=== PATIENT | female | born 1975 | race Caucasian/White ===

== ENCOUNTER 2017-11-14 18:52 | Emergency (ER) | payer BC, MEDICAID ==
[~2017-11-14] VITALS: Ht 170.2 cm; Wt 70.3 kg
[2017-11-14 18:56] VITALS: BP 149/93
--- NOTE | 2017-11-14 19:07 | NUR ---
PT AMBULATES TO BED 6
--- NOTE | 2017-11-14 19:13 | NUR ---
PT PRESENTED ER WITH RASH X 3 HOURS. PT STATED SHE FEELS SHE ATE SOMETHING THAT IS CAUSING THE RASH. UPON ASSESSMENT, RASH IS THROUGHOUT BODY, REDDNESS, AND WARM TO TOUCH. PT STATES SHE ITCHES. KNA AND NO PREVIOUS MEDICAL HX. SKIN IS PINK/WARM/DRY; AAOX4 WITH EVEN AND STEADY GAIT; LUNGS CLEAR BL; HR EVEN AND REGULAR; PT DENIES ANY SOB OR SWELLING IN THE THROAT AND TONGUE AT THIS TIME; PATIENT STATES PAIN OF 0/10 AT THIS TIME; VSS; PATIENT POSITIONED FOR COMFORT; HOB ELEVATED; BEDRAILS UP X2; BED DOWN. ER MD MADE AWARE OF PT STATUS.
[2017-11-14] MEDS ORDERED: methylPREDNISolone SS 125 MG/2 ML VIAL IM ONE (19:50)
[2017-11-14 20:17] VITALS: BP 149/93
--- NOTE | 2017-11-14 20:23 | NUR ---
Patient discharged with v/s stable. Written and verbal after care instructions given and explained. Patient alert, oriented and verbalized understanding of instructions. Ambulatory with steady gait. All questions addressed prior to discharge. ID band removed. Patient advised to follow up with PMD. Rx of PREDNISONE, BENADRYL were given. Patient educated on indication of medication including possible reaction and side effects. Opportunity to ask questions provided and answered.
== END 2017-11-14 20:17 | disposition home or self-care (01) ==
LOC: MED 18:52
DX: L25.8 Unspecified contact dermatitis due to other agents (principal); E03.9 Hypothyroidism, unspecified
CPT/HCPCS: 96372; 99283; J2930

== ENCOUNTER 2017-11-16 21:04 | Emergency (ER) | payer MEDICAID ==
[~2017-11-16] VITALS: Ht 170.2 cm; Wt 54.4 kg
[2017-11-16 21:06] VITALS: BP 118/77
--- NOTE | 2017-11-16 21:15 | NUR ---
pt assisted back to lobby in stable condition
--- NOTE | 2017-11-16 22:51 | NUR ---
pt to er bed 12
--- NOTE | 2017-11-16 23:05 | NUR ---
PT PRESENTED ER WITH RASH ALL OVER BODY. PT CAME IN ON SUNDAY AND WAS SENT HOME WITH MEDICATION BUT PT STATES THAT RASH HAS NOT GONE AWAY BUT GOT WORSE. PT STATES THE RASH IS PAINFUL 5/10. IT ALSO ITCHES. RASH IS WARM TO TOUCH AND RED. SKIN IS PINK/WARM/DRY; AAOX4 WITH EVEN AND STEADY GAIT; LUNGS CLEAR BL; HR EVEN AND REGULAR; PT DENIES ANY FEVER, CP, SOB, OR COUGH AT THIS TIME; ; VSS; PATIENT POSITIONED FOR COMFORT; HOB ELEVATED; BEDRAILS UP X2; BED DOWN. ER MD MADE AWARE OF PT STATUS.
[2017-11-17 00:49] LABS: BASOPHILS % (AUTO) 0.1 % (0.0-2.0); EOSINOPHILS % (AUTO) 0.1 % (0.0-4.0); HEMATOCRIT 38.9 % (36-48); HEMOGLOBIN 12.2 g/dL (12.0-16.0); LYMPHOCYTES # (AUTO) 1.7 K/uL (2.5-16.5); LYMPHOCYTES % (AUTO) 10.3 % (20.5-51.1); MEAN CORPUSCULAR HEMOGLOBIN 25 pg (27-31); MEAN CORPUSCULAR HGB CONC 31 g/dL (33-37); MEAN CORPUSCULAR VOLUME 78.4 fL (80-94); MONOCYTES # (AUTO) 0.8 K/uL (0.8-1.0); MONOCYTES % (AUTO) 4.8 % (1.7-9.3); NEUTROPHILS # (AUTO) 14.1 K/uL (1.8-7.7); PLATELET COUNT (AUTO) 294 K/uL (140-450); RED BLOOD CELL COUNT(AUTO) 4.96 MIL/uL (4.20-5.40); RED CELL DISTRIBUTION WIDTH 15.9 % (11.6-13.7); WHITE BLOOD COUNT (AUTO) 16.7 K/uL (4.8-10.8)
[2017-11-17 01:09] LABS: NEUTROPHILS % (AUTO) 84.7 % (42.2-75.2)
--- NOTE | 2017-11-17 01:15 | NUR ---
PT RESTING IN BED, VITALS STABLE.
[2017-11-17 01:16] LABS: ANION GAP 7.9 (8-16); CARBON DIOXIDE 28.8 mmol/L (21-32); CREATININE 0.7 mg/dL (0.6-1.3); POTASSIUM 3.7 mmol/L (3.5-5.1)
[2017-11-17 02:20] VITALS: BP 107/62
--- NOTE | 2017-11-17 02:20 | NUR ---
Patient discharged with v/s stable. Written and verbal after care instructions given and explained. Patient alert, oriented and verbalized understanding of instructions. Ambulatory with steady gait. All questions addressed prior to discharge. ID band removed. Patient advised to follow up with PMD. Rx of CETRIZINE HYDROCHLORIDE and prednisone were given. Patient educated on indication of medication including possible reaction and side effects. Opportunity to ask questions provided and answered.
== END 2017-11-17 02:20 | disposition home or self-care (01) ==
LOC: MED 21:04
DX: L50.9 Urticaria, unspecified (principal); E03.9 Hypothyroidism, unspecified; Z90.49 Acquired absence of other specified parts of digestive tract
CPT/HCPCS: 36415; 80048; 81002; 81025; 85025; 96372; 99284; J0171

== ENCOUNTER 2018-10-18 16:54 | Emergency (ER) | payer MEDICAID ==
[~2018-10-18] VITALS: Ht 170.2 cm; Wt 69.4 kg
[2018-10-18 17:28] VITALS: BP 118/68
--- NOTE | 2018-10-18 17:34 | NUR ---
PT AMBULATED TO THE LOBBY AT THIS TIME.
--- NOTE | 2018-10-18 17:42 | NUR ---
PT. AMBULATED TO BED 10
--- NOTE | 2018-10-18 17:45 | NUR ---
PT AMB TO RESTROOM WITH STEADY GAIT
--- NOTE | 2018-10-18 17:53 | NUR ---
C/O INTERMITTENET CHEST PAIN RADIATING TO CENTER OF BACK 09/02 X1 WEEK. PT STATES THAT THE PAIN IS WORSE WHEN SHE EATS. PT IS SPEAKING CLEAR/COMPLETE SENTENCES, SKIN IS COOL/DRY. PT O2 SAT IS 98% RA. PT DENIES N/V. PT ALSO REPORTS ABNORMAL VAGINAL BLEEDING X5 WEEKS STARTING 09/07/18. BED IN LOW POSITION, SIDE RAIL UP X1.
--- NOTE | 2018-10-18 18:44 | NUR ---
[facility] EMT AT BEDSIDE FOR EKG
--- NOTE | 2018-10-18 18:45 | NUR ---
CHEST XRAY AT BEDSIDE
--- NOTE | 2018-10-18 19:09 | NUR ---
REPORT GIVEN TO ANY PLASENCIA, TRANSFER OF CARE
--- NOTE | 2018-10-18 19:09 | NUR ---
RECEIVED REPORT FROM TERI PLASENCIA. PT IS AWAKE, LAYING IN BED. C/O OF CHEST DISCOMFORT 05/05. DR SUTTON AWARE. WILL CONTINUE TO MONITOR.
[2018-10-18] MEDS ORDERED: DICYCLOMINE HCL LIQUID 20 MG, ALUMINUM HYD/MAG/SIMETHICONE 30 ML, LIDOCAINE VISCOUS 2% ... PO ONE ×3 (19:40)
[2018-10-18 20:06] LABS: BASOPHILS # (AUTO) 0.1 K/uL (0.00-0.22); EOSINOPHILS # (AUTO) 0.1 K/uL (0-0.4); EOSINOPHILS % (AUTO) 1.1 % (0.0-4.0); HEMATOCRIT 28.6 % (36-48); HEMOGLOBIN 9.1 g/dL (12.0-16.0); LYMPHOCYTES # (AUTO) 2.1 K/uL (2.5-16.5); LYMPHOCYTES % (AUTO) 33.2 % (20.5-51.1); MEAN CORPUSCULAR HEMOGLOBIN 24 pg (27-31); MEAN CORPUSCULAR HGB CONC 32 g/dL (33-37); MEAN CORPUSCULAR VOLUME 76.2 fL (80-94); MONOCYTES # (AUTO) 0.4 K/uL (0.8-1.0); MONOCYTES % (AUTO) 6.1 % (1.7-9.3); NEUTROPHILS # (AUTO) 3.7 K/uL (1.8-7.7); NEUTROPHILS % (AUTO) 58.6 % (42.2-75.2); PLATELET COUNT (AUTO) 265 K/uL (140-450); RED BLOOD CELL COUNT(AUTO) 3.76 MIL/uL (4.20-5.40); RED CELL DISTRIBUTION WIDTH 15.6 % (11.6-13.7); WHITE BLOOD COUNT (AUTO) 6.3 K/uL (4.8-10.8)
[2018-10-18 20:22] LABS: ALBUMIN 3.7 g/dL (3.4-5.0); ANION GAP 10.9 (8-16); CARBON DIOXIDE 28.8 mmol/L (21-32); CREATININE 0.7 mg/dL (0.6-1.3); POTASSIUM 3.7 mmol/L (3.5-5.1); TOTAL BILIRUBIN 0.3 mg/dL (0.0-1.0)
--- NOTE | 2018-10-18 20:30 | NUR ---
PT IS AWAKE LAYING ON BED. IS AT BEDSIDE. NO CHEST PAIN. VSS. DR SUTTON AWARE. WILL CONTINUE TO MONITOR.
--- NOTE | 2018-10-18 21:33 | NUR ---
Patient discharged with v/s stable. Written and verbal after care instructions given and explained. Patient alert, oriented and verbalized understanding of instructions. Ambulatory with steady gait. All questions addressed prior to discharge. ID band removed. Patient advised to follow up with PMD. Rx of CARAFATE, PROVERA given. Patient educated on indication of medication including possible reaction and side effects. Opportunity to ask questions provided and answered.
[2018-10-18 21:34] VITALS: BP 111/62
== END 2018-10-18 21:33 | disposition home or self-care (01) ==
LOC: MED 16:54
DX: R07.9 Chest pain, unspecified (principal); N93.8 Other specified abnormal uterine and vaginal bleeding; E07.9 Disorder of thyroid, unspecified; Z90.49 Acquired absence of other specified parts of digestive tract; Z98.890 Other specified postprocedural states
CPT/HCPCS: 36415; 71045; 80053; 83690; 84484; 85025; 93005; 99284; Q0092